=== PATIENT | female | born 1985 | race African-American/Black ===

== ENCOUNTER 2016-10-10 08:13 | Observation (INO) | payer OTHER ==
[2016-10-10 08:18] VITALS: BMI 39.9
[2016-10-10] MEDS ORDERED: ONDANSETRON 4 MG/2 ML VIAL IVPUSH ONE (09:30)
[2016-10-10] MEDS ORDERED: SODIUM CHLORIDE 1,000 ML IV STA ×2 (09:30→11:28)
[2016-10-10] MEDS ORDERED: morphine CARPU-JECT 4 MG/1 ML DISP.SYRIN IVPUSH ONE ×2 (09:30→11:44)
--- NOTE | 2016-10-10 09:30 | PDOC ---
History of Present Illness - General History Source: Patient Exam Limitations: No Limitations - History of Present Illness Initial Comments: 10/10/16 09:34 The patient is a 30 year old female, with a significant past medical history of anemia, who presents to the emergency department with abdominal pain, nausea and vomiting for the past 4 days. She describes the abdominal pain as a cramping sensation, ranging from moderate to severe, diffused throughout, without radiation or modifying factors She notes that last night was the first time she had a vomiting episode, which she describes as nonbilious and nonbloody. She also notes that her nausea is onset when the pain is worsened. She states that she recently arrived from [facility] on September 23 from a vacation. The patient denies chest pain, shortness of breath, headache and dizziness. Denies fever, chills, diarrhea and constipation. Denies dysuria, frequency, urgency and hematuria. LMP: 10/04/2016 Allergies: None Past surgical history: None reported Social history: +Occasional alcohol use. No tobacco or drug use reported <Chadd Elder - Last Filed: 10/10/16 12:45> <Mallika Genao - Last Filed: 10/11/16 09:40> - General Chief Complaint: Pain, Acute Stated Complaint: ABD PAIN, VOMTING Time Seen by Provider: 10/10/16 09:06 Past History <Chadd Elder - Last Filed: 10/10/16 12:45> - Past Medical History Anemia: Yes - Psycho/Social/Smoking Cessation Hx Anxiety: No Suicidal Ideation: No Smoking History: Never smoked Information on smoking cessation initiated: No Hx Alcohol Use: Yes (OCCASIONALLY) Drug/Substance Use Hx: No Substance Use Type: Alcohol <Mallika Genao - Last Filed: 10/11/16 09:40> - Past Medical History Allergies/Adverse Reactions: Allergies Allergy/AdvReac Type Severity Reaction Status Date / Time No Known Allergies Allergy Verified 10/10/16 08:18 Home Medications: Ambulatory Orders Norethindrone AC-Eth Estradiol [Microgestin 21 1-20 Tablet] 1 each PO DAILY Review of Systems - Review of Systems Able to Perform ROS?: Yes Comments:: 10/10/16 09:35 GENERAL/CONSTITUTIONAL: No fever or chills. No weakness. HEAD, EYES, EARS, NOSE AND THROAT: No change in vision. No ear pain or discharge. No sore throat. CARDIOVASCULAR: No chest pain or shortness of breath RESPIRATORY: No cough, wheezing, or hemoptysis. GASTROINTESTINAL: +Abdominal pain, nausea, vomiting. No diarrhea or constipation. GENITOURINARY: No dysuria, frequency, or change in urination. MUSCULOSKELETAL: No joint or muscle swelling or pain. No neck or back pain. SKIN: No rash NEUROLOGIC: No headache, vertigo, loss of consciousness, or change in strength/ sensation. ENDOCRINE: No increased thirst. No abnormal weight change HEMATOLOGIC/LYMPHATIC: No anemia, easy bleeding, or history of blood clots. ALLERGIC/IMMUNOLOGIC: No hives or skin allergy. <Chadd Elder - Last Filed: 10/10/16 12:45> *Physical Exam - Vital Signs Last Vital Signs Temp Pulse Resp BP Pulse Ox 98.1 F 98 H 18 119/80 98 10/10/16 08:16 10/10/16 08:16 10/10/16 08:16 10/10/16 08:16 10/10/16 08:16 - Physical Exam Comments: 10/10/16 09:35 GENERAL: Awake, alert, and fully oriented, appears uncomfortable. HEAD: No signs of trauma, normocephalic, atraumatic EYES: PERRLA, EOMI, sclera anicteric, conjunctiva clear ENT: Auricles normal inspection, hearing grossly normal, nares patent, oropharynx clear without exudates. Dry Mucosa. NECK: Normal ROM, supple, no lymphadenopathy, JVD, or masses LUNGS: No distress, speaks full sentences, clear to auscultation bilaterally HEART: Regular rate and rhythm, normal S1 and S2, no murmurs, rubs or gallops, peripheral pulses normal and equal bilaterally. ABDOMEN: +Diffusely tender, worst in the epigastric region. Soft, normoactive bowel sounds. No guarding, no rebound. No masses EXTREMITIES: Normal inspection, Normal range of motion, no edema. No clubbing or cyanosis. NEUROLOGICAL: Cranial nerves II through XII grossly intact. Normal speech, normal gait, no focal sensorimotor deficits SKIN: Warm, Dry, normal turgor, no rashes or lesions noted. <Chadd Elder - Last Filed: 10/10/16 12:45> - Vital Signs Last Vital Signs Temp Pulse Resp BP Pulse Ox 98.1 F 98 H 18 119/80 98 10/10/16 08:16 10/10/16 08:16 10/10/16 08:16 10/10/16 08:16 10/10/16 08:16 <Mallika Genao - Last Filed: 10/11/16 09:40> ED Treatment Course - LABORATORY CBC & Chemistry Diagram: 10/10/16 10:25 10/10/16 10:25 - RADIOLOGY Radiograph Interpretation: 10/10/16 12:45 CT abdomen and pelvis without contrast Reviewed by: Dr. Tony Boone Impression: Multiple abnormal thick walled and enhancing loops of the mid to distal small bowel containing fluid and air. There are enteric and mesenteric inflammatory changes. There is moderate free fluid suggestive of peritonitis. No free air is seen. Note is made of a large lobulated myomatous uterus. <Chadd Elder - Last Filed: 10/10/16 12:45> - LABORATORY CBC & Chemistry Diagram: 10/11/16 07:45 10/11/16 07:45 <Mallika Genao - Last Filed: 10/11/16 09:40> Medical Decision Making - Medical Decision Making 10/10/16 11:40 Pt reassessed. Pain is returning. She is going to CT presently. Will give additional dose of morphine. Await CT results. 10/10/16 13:[address] results with patient- edematous loops of bowel and free fluid. Also with elevated lactate. She continues to have discomfort and appears ill but nontoxic. She agrees to admission for further workup and management of her pain. <Mallika Genao - Last Filed: 10/11/16 09:40> *DC/Admit/Observation/Transfer - Attestations Scribe Attestion: 10/10/16 09:35 Documentation prepared by Chadd Elder, acting as medical education coordinator for Mallika Genao MD <Chadd Elder - Last Filed: 10/10/16 12:45> - Discharge Dispostion Admit: Yes <Mallika Genao - Last Filed: 10/11/16 09:40> Diagnosis at time of Disposition: Enteritis - Discharge Dispostion Condition at time of disposition: Stable
[2016-10-10] MEDS ORDERED: morphine CARPU-JECT 4 MG/1 ML DISP.SYRIN ONE ×2 (09:45→12:10)
[2016-10-10] MEDS ORDERED: ONDANSETRON 4 MG/2 ML VIAL ONE (09:45)
[2016-10-10 10:10] LABS: URINE APPEARANCE CLEAR; URINE BILIRUBIN NEGATIVE (NEGATIVE); URINE COLOR YELLOW; URINE GLUCOSE (UA) NEGATIVE (NEGATIVE); URINE KETONE TRACE (NEGATIVE); URINE LEUK ESTERASE NEGATIVE (NEGATIVE); URINE NITRITE NEGATIVE (NEGATIVE); URINE PROTEIN NEGATIVE (NEGATIVE); URINE UROBILINOGEN NEGATIVE E.U./dl (0.2-1.0)
[2016-10-10 10:39] LABS: MCHC 31.9 g/dl (32.0-36.0); MEAN CELL VOLUME 61.8 fl (80-96); MEAN PLT VOLUME 8.5 fl (7.5-11.1); PLATELET COUNT 278 K/MM3 (134-434); RDW 22.6 % (11.6-15.6); WHITE BLOOD COUNT 9.5 K/mm3 (4.0-10.0)
[2016-10-10 10:41] LABS: MCH 19.8 pg (25.7-33.7)
[2016-10-10 10:58] LABS: URINE BLOOD 1+ (NEGATIVE)
[2016-10-10 11:01] LABS: URINE BACTERIA RARE /hpf (NONE SEEN); URINE MUCUS MODERATE; URINE RBC 1 /hpf (0-3); URINE WBC 4 /hpf (3-5)
[2016-10-10 11:14] LABS: ALBUMIN 3.7 g/dl (3.4-5.0); ALK PHOS 98 U/L (45-117); ANION GAP 9 (8-16); BILIRUBIN,TOTAL 0.5 mg/dL (0.2-1.0); CALCIUM 8.8 mg/dL (8.5-10.1); CO2 23 mmol/L (21-32); CREATININE 0.6 mg/dL (0.55-1.02); GLUCOSE,RANDOM 103 mg/dL (74-106); SGOT/AST 21 U/L (15-37); SGPT/ALT 15 U/L (12-78); TOT PROT 9.6 g/dl (6.4-8.2)
[2016-10-10] MEDS ORDERED: METRONIDAZOLE 500 MG PREMIXED 100 ML IVPB ONE ×2 (13:04→13:11)
[2016-10-10] MEDS ORDERED: LEVOFLOXACIN 500 MG IVPB 100 ML IVPB ONE ×2 (13:04→13:11)
--- NOTE | 2016-10-10 13:08 | PN ---
Teaching Attending Note Name of Resident: Polina Hein ATTENDING PHYSICIAN STATEMENT I saw and evaluated the patient. I reviewed the resident's note and discussed the case with the resident. I agree with the resident's findings and plan as documented. SUBJECTIVE: The patient is a 30 year old female with a significant past medical history of anemia (Thalesemia) who presents to the ED with four days of diffuse abdominal pain accompanied by nausea and vomiting. Her pain began in the epigastrum and became generalized. It is mild to moderate in intensity and does not radiate. She began vomiting last night and has vomited 6 times total (non-bloody/bilious) . She began to have diarrhea yesterday afternoon and has had 6 episodes of watery stool (no blood or mucous). She was in [facility] for 10 days and returned on September 23. She ate resort food and drank resort bottled water. None of her fellow travelers became ill. She denies [place] contact/hiking. OBJECTIVE: Vitals noted She is well appearing Abdomen is soft and diffusely tender with deep palpation Labs and CT noted including mild lactic acidosis with normal bicarbonate and anion gap ASSESSMENT AND PLAN: -Enteritis Infectious vs Inflammatory ED covered with Levaquin and Flagyl Will volume resuscitate with D5-NS given hypovolemia and ketonemia suspected secondary to starvation ketosis Clear liquids for now Will consult GI EKG given Zofran and flouroquinolone use Stool studies (ordered) -Anemia Chronic She reports an exhaustive previous work-up with a diagnosis of Thalesemia Low MCV and target cells supports this However, high RDW suggests possible concurrent iron deficiency At her request we are deferring further evaluation to the outpatient setting Further details per resident note
[2016-10-10] MEDS ORDERED: DEXTROSE 5% IV SCH (13:15)
[2016-10-10] MEDS ORDERED: NORMAL SALINE IV SCH (13:15)
--- NOTE | 2016-10-10 13:45 | HP ---
CHIEF COMPLAINT: "my stomach hurts" PCP: none HISTORY OF PRESENT ILLNESS: This is a 30 yo F with pmh of thalassemia (unknown type, baseline hgb 10-12), who presents with craphy abd pain x 4 days and n/v, diarrhea since yesterday. She has had 4 episodes of NBNB vomiting and 7 episodes of watery nonbloody nonmelenous diarrhea since yesterday. Her abd pain is 7/10 alleviated by morphine, mostly epirastric and in R Lower quad, nonradiating and aggravated by having a BM. Her rectum also hurts during the BM. She has lost her appetite. this has never happened to her before. She deneis sick contacts. [place] e[place] [facility] but has only eaten resort food, no fruit and drank bottled water. She denies f/c, sob, sushila pain, cought, dysuria, flank pain, h/a , weight change, edema. She has no personal of family history of IBS, autoimmune disease or GI issues. ER course was notable for: (1)labs (2)abd ct (3)zofran, ivf, levaquin, flagyl Recent Travel: as above PAST MEDICAL HISTORY: as above PAST SURGICAL HISTORY: breast reduction Social History: resident physician Smoking: denies Alcohol: occasional 2 drink/week Drugs: denies Family History: sickle trait mother, no history of IBS, Autoimmune or gi disease Allergies No Known Allergies Allergy (Verified 10/10/16 08:18) HOME MEDICATIONS: Home Medications Medication Instructions Recorded Norethindrone AC-Eth Estradiol 1 each PO DAILY 10/10/16 [Microgestin 21 1-20 Tablet] REVIEW OF SYSTEMS CONSTITUTIONAL: Absent: fever, chills,weight change HEENT: Absent: rhinorrhea, nasal congestion, throat pain CARDIOVASCULAR: Absent: chest pain, syncope, palpitations RESPIRATORY: Absent: cough, shortness of breath, dyspnea with exertion GASTROINTESTINAL: Absent: constipation, melena, hematochezia GENITOURINARY: Absent: dysuria, flank pain MUSCULOSKELETAL: Absent: myalgia, arthralgia SKIN: Absent: rash, itching, pallor HEMATOLOGIC/IMMUNOLOGIC: Absent: frequent infections ENDOCRINE: Absent: unexplained weight gain, unexplained weight loss NEUROLOGIC: Absent: headache, focal weakness or paresthesias PSYCHIATRIC: Absent: anxiety, depression Laboratory Tests 10/10/16 10/10/1610/10/17 09:20 10:25 10:25 WBC 9.5 RBC 5.79 H Hgb 11.4 Hct 35.8 MCV 61.8 L MCHC 31.9 L RDW 22.6 H Plt Count 278 MPV 8.5 Neutrophils % 89.0 H Lymphocytes % 9.0 Monocytes % 2.0 L Differential Comment Manual diff done Platelet Estimate Adequate Hypochromic-Microcytic 4+ Anisocytosis 3+ Microcytosis 2+ Macrocytosis 1+ Target Cells 2+ Morphology Comment Slide scanned Sodium Potassium Chloride Carbon Dioxide Anion Gap BUN Creatinine Creat Clearance w eGFR Random Glucose Lactic Acid Calcium Total Bilirubin AST ALT Alkaline Phosphatase Total Protein Albumin Lipase Serum , Qual Negative Urine Color Yellow Urine Appearance Clear Urine pH 5.0 Ur Specific [place] 1.025 Urine Protein Negative Urine Glucose (UA) Negative Urine Ketones Trace H Urine Blood 1+ H Urine Nitrite Negative Urine Bilirubin Negative Urine Urobilinogen Negative Ur Leukocyte Esterase Negative Urine RBC 1 Urine WBC 4 Ur Epithelial Cells Rare Urine Bacteria Rare Urine Mucus Moderate Urine HCG, Qual Negative 10/10/16 10/10/16 10:25 10:25 WBC RBC Hgb Hct MCV MCHC RDW Plt Count MPV Neutrophils % Lymphocytes % Monocytes % Differential Comment Platelet Estimate Hypochromic-Microcytic Anisocytosis Microcytosis Macrocytosis Target Cells Morphology Comment Sodium 135 L Potassium 3.9 Chloride 103 Carbon Dioxide 23 Anion Gap 9 BUN 6 L Creatinine 0.6 Creat Clearance w eGFR > 60 Random Glucose 103 Lactic Acid 2.153 H* Calcium 8.8 Total Bilirubin 0.5 AST 21 ALT 15 Alkaline Phosphatase 98 Total Protein 9.6 H Albumin 3.7 Lipase 121 Serum , Qual Urine Color Urine Appearance Urine pH Ur Specific [place] Urine Protein Urine Glucose (UA) Urine Ketones Urine Blood Urine Nitrite Urine Bilirubin Urine Urobilinogen Ur Leukocyte Esterase Urine RBC Urine WBC Ur Epithelial Cells Urine Bacteria Urine Mucus Urine HCG, Qual PHYSICAL EXAMINATION GENERAL: Awake, alert, and fully oriented, in no acute distress. HEAD: Normal with no signs of trauma. EYES: Pupils equal, round and reactive to light, extraocular movements intact, sclera anicteric, conjunctiva clear. No lid lag. EARS, NOSE, THROAT: Moist mucous membranes. NECK: Nsupple LUNGS: Breath sounds equal, clear to auscultation bilaterally. HEART: Regular rate and rhythm, normal S1 and S2 ABDOMEN: Soft, diffusely tender more in epigastric, ruq, rlq. obese, not distended, normoactive bowel sounds, ruq, rld epigastric voluntary guarding, no rebound, no masses. No hepatomegaly or splenomegaly. Rectal Exam: empty vault with trace brown stool, no lesions, mildly painful MUSCULOSKELETAL: No CVA tenderness. UPPER EXTREMITIES: 2+ pulses, warm, well-perfused. No cyanosis. No clubbing. No peripheral edema. LOWER EXTREMITIES: 2+ pulses, warm, well-perfused. No calf tenderness. No peripheral edema. NEUROLOGICAL: Cranial nerves II-XII grossly intact. Normal speech. Normal gait. PSYCHIATRIC: Cooperative. Good eye contact. Appropriate mood and affect. SKIN: Warm, dry ASSESSMENT/PLAN: This is a 30 yo F with pmh of thalassemia (unknown type, baseline hgb 10-12), who presents with craphy abd pain x 4 days and n/v, diarrhea since yesterday. Acute enteritis -infectious vs inflamatory -CT abd/pelvis: mid-dist SB thickening, perienteric and mesenteric inflammation , moderate amt of free fluid -empiric flagyl, levaquin in ed -continue with empiric unasyn -does not meet sirs criteria, afebrile, no leukocytosis -stool occult blood, c diff, oova, parasites, wbc -crp, esr, p anca -Gi consult -IVF hydration -zofran prn -morphine prn -clears Lactic acidosis -secondatry to eneritis, dehydration -lactate 2.15, repeat p/d -treat with ivf Thalassemia -unknown type -hgb at baseline FEN D5NS @250 x 2L Lytes stable clears SCD ppx Dispo: admit to [facility]. Problem List - Problem (1) Enteritis Code(s): K52.9 - NONINFECTIVE GASTROENTERITIS AND COLITIS, UNSPECIFIED (2) Thalassemia Code(s): D56.9 - THALASSEMIA, UNSPECIFIED (3) Abdominal pain Code(s): R10.9 - UNSPECIFIED ABDOMINAL PAIN (4) Vomiting Code(s): R11.10 - VOMITING, UNSPECIFIED (5) Diarrhea Code(s): R19.7 - DIARRHEA, UNSPECIFIED Visit type - Emergency Visit Emergency Visit: Yes ED Registration Date: 10/10/16 Care time: The patient presented to the Emergency Department on the above date and was hospitalized for further evaluation of their emergent condition. - New Patient This patient is new to me today: Yes Date on this admission: 10/10/16 - Critical Care Critical Care patient: No
[2016-10-10 14:06] LABS: HYPOCHROMIA 4+; PLATELET ESTIMATE ADEQUATE (NORMAL)
[2016-10-10 14:07] LABS: ANISOCYTOSIS 3+; MICROCYTOSIS 2+; TARGET CELLS 2+
[2016-10-10] MEDS ORDERED: ACETAMINOPHEN 325 MG TABLET (FP) PO PRN (15:12)
[2016-10-10] MEDS ORDERED: morphine CARPU-JECT 2 MG/1 ML DISP.SYRIN IVPUSH PRN (15:12)
[2016-10-10] MEDS ORDERED: ACETAMINOPHEN 325 MG TABLET (FP) ONE (15:30)
[2016-10-10] MEDS ORDERED: ONDANSETRON 4 MG/2 ML VIAL IVPUSH PRN (15:35)
--- NOTE | 2016-10-10 19:27 | CON.GI ---
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 SHE WAS IN HER USOH AND ON SUNDAY HAD MILD EPIGASTRIC PAIN THAT RESOLVED. SUNDAY HER PAIN AND NAUSEA GOT WORSE AND SHE FOUND IT DIFFICULT TO EAT. SUNDAY NIGHT SHE DEVELOPED DIARRHEA AND WENT TO WORK ON SUNDAY. TODAY SHE HAD VOMITING AND A NUMBER OF NONBLOODY BOWEL MOVEMENTS. SHE DENIES MELENA, BRBPR, AND FEVER. IN THE ER SHE HAD A CT SCAN THAT SHOWED AND ENTERITIS IN MID AND DISTAL SB. SHE WAS PLACED ON IV ANTIBIOTICS. NO STOOL CULTURES DONE. TODAY SHE FEELS MUCH BETTER. THERE IS MUCH LESS ABDOMINAL PAIN. SHE HAS HAD 4 WATERY BM'S TODAY.SHE HAS BEEN ABLE TO TOLERATE LIQUID DIET. 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. SHE CAME BACK TO [place] ON September. NUMBER OF SICK CONTACTS AT WORK) Hepatobiliary: No: Cirrhosis, Cholelithiasis, Cholecystitis, Choledocholithiasis , Hepatitis A, Hepatitis B, Hepatitis C, Other Renal/: No: Renal Failure, Renal Inusuff, BPH, Cancer, Hematuria, Hemodialysis , Neurogenic Bladder, Renal Calculi, UTI, Other Reproductive: No: Ectopic , Endometriosis, Fibroids, PID, Polycystic Ovary Syndrome, Postmenopausal, Other ...LMP: 09/29/16 ...: No Infectious Disease: No: AIDS, C-Diff, Herpes Zoster, HIV, MRSA, STD's, Tuberculosis, VREF, Other Psych: No: Addictions, Anxiety, Bipolar, Depression, Panic, Psychosis, Schizophrenia, Other Musculoskeletal: No: Bursitis, Chronic low back pain, Hemiparesis, Hemiplegia, Osteoarthritis, Paraplegia, Other Rheumatology: No: Fibromyalgia, Gout, Lupus, Rheumatoid Arthritis, Sarcoidosis, Vasculitis, Other ENT: No: Allergic Rhinitis, Sinusitis, Other Endocrine: No: [place]'s Disease, Ry's Disease, Diabetes Insipidus, Diabetes Mellitus, Hyperparathyroidism, Hyperthyroidism, Hypothyroidism, Osteopenia, SIADH, Other Dermatology: No: Basal Cell, Cellulitis, Eczema, Melanoma, Psoriasis, Squamous Cell, Other - Past Surgical History Past Surgical History: No: None, AAA Repair, AICD, Amputation, Appendectomy, Arthrosocopy, AV Fistula/Graft, Bariatric Surgery, Breast Biopsy, Bypass, CABG, Carotid Endarterectomy, Cataract Removal, Cholecystectomy, Colectomy, Colonoscopy, Colostomy, Craniotomy, , Cystectomy, Hernia Repair, Hysterectomy, Ileal Conduit, Ileosotomy, Joint Replacement, Kidney Transplant, Laminectomy, Liver Transplant, Mastectomy, Nephrectomy, Oopherectomy, Orchiectomy, Permanent Pacemaker, Prostatectomy, Splenectomy, Stent, Thoracotomy , TURP, Tonsillectomy, Tubal Ligation, Upper Endoscopy, Valve Replacement, Vasectomy, Vein Stripping/Ligation - Alcohol/Substance Use Hx Alcohol Use: Yes (Occ. wine) - Smoking History Smoking history: Never smoked Have you smoked in the past 12 months: No Home Medications - Allergies Allergies/Adverse Reactions: Allergies Allergy/AdvReac Type Severity Reaction Status Date / Time No Known Allergies Allergy Verified 10/10/16 08:18 - Home Medications Home Medications: Ambulatory Orders Norethindrone AC-Eth Estradiol [Microgestin 21 1-20 Tablet] 1 each PO DAILY Family Disease History - Family Disease History Family History: Unremarkable Review of Systems - Review of Systems Constitutional: reports: Chills Eyes: reports: No Symptoms HENT: reports: No Symptoms Neck: reports: No Symptoms Cardiovascular: reports: No Symptoms Respiratory: reports: No Symptoms Gastrointestinal: reports: Abdominal Pain, Diarrhea, Nausea, Vomiting Genitourinary: reports: No Symptoms Breasts: reports: No Symptoms Reported Musculoskeletal: reports: No Symptoms Integumentary: reports: No Symptoms Neurological: reports: No Symptoms Endocrine: reports: No Symptoms Hematology/Lymphatic: reports: No Symptoms Psychiatric: reports: No Symptoms Physical Exam-GI Vital Signs: Vital Signs Temperature 98 F 10/10/16 16:16 Pulse Rate 76 10/10/16 15:22 Respiratory Rate 18 10/10/16 16:16 Blood Pressure 126/71 10/10/16 15:22 O2 Sat by Pulse Oximetry (%) 100 10/10/16 16:16 Constitutional: Yes: Well Nourished, Other (OVERWEIGHT) Eyes: Yes: WNL HENT: Yes: WNL Neck: Yes: WNL Cardiovascular: Yes: WNL Respiratory: Yes: WNL Gastrointestinal Inspection: Yes: WNL ...Auscultate: Yes: Normoactive Bowel Sounds ...Palpate: Yes: Other (MILD EPIGASTRIC PAIN NO GAURDING OR REBOUND) Musculoskeletal: Yes: WNL Extremities: Yes: WNL Neurological: Yes: WNL Psychiatric: Yes: WNL Labs: Laboratory Tests 10/10/16 10/10/16 10/10/16 09:20 10:25 10:25 WBC 9.5 RBC 5.79 H Hgb 11.4 Hct 35.8 MCV 61.8 L MCHC 31.9 L RDW 22.6 H Plt Count 278 MPV 8.5 Neutrophils % 89.0 H Lymphocytes % 9.0 Monocytes % 2.0 L Sodium Potassium Chloride Carbon Dioxide Anion Gap BUN Creatinine Creat Clearance w eGFR Lactic Acid Calcium Total Bilirubin AST ALT Alkaline Phosphatase Total Protein Albumin Lipase Serum , Qual Negative Urine Ketones Trace H Urine Blood 1+ H Stool Occult Blood 10/10/16 10/10/16 10/10/16 10:25 10:25 15:00 WBC RBC Hgb Hct MCV MCHC RDW Plt Count MPV Neutrophils % Lymphocytes % Monocytes % Sodium 135 L Potassium 3.9 Chloride 103 Carbon Dioxide 23 Anion Gap 9 BUN 6 L Creatinine 0.6 Creat Clearance w eGFR > 60 Lactic Acid 2.153 H* 1.321 Calcium 8.8 Total Bilirubin 0.5 AST 21 ALT 15 Alkaline Phosphatase 98 Total Protein 9.6 H Albumin 3.7 Lipase 121 Serum , Qual Urine Ketones Urine Blood Stool Occult Blood 10/10/16 15:30 WBC RBC Hgb Hct MCV MCHC RDW Plt Count MPV Neutrophils % Lymphocytes % Monocytes % Sodium Potassium Chloride Carbon Dioxide Anion Gap BUN Creatinine Creat Clearance w eGFR Lactic Acid Calcium Total Bilirubin AST ALT Alkaline Phosphatase Total Protein Albumin Lipase Serum , Qual Urine Ketones Urine Blood Stool Occult Blood Negative Imaging - Results Cat Scan: Image Reviewed Problem List - Problems (1) Gastroenteritis Assessment/Plan: ? ETIOLOGY, STARTED ON EMPIRIC ANTIBIOTICS BUT NO STOOLS SENT, POSSIBLE VIRAL GE. IN AM ADVANCE TO BRAT DIET , IF TOLERATES TO SOFT BLAND DIET DOUBT IBD IF IMPROVED CONSIDER STOPPING THE ABX Code(s): K52.9 - NONINFECTIVE GASTROENTERITIS AND COLITIS, UNSPECIFIED (2) Enteritis Code(s): K52.9 - NONINFECTIVE GASTROENTERITIS AND COLITIS, UNSPECIFIED (3) Abdominal pain Code(s): R10.9 - UNSPECIFIED ABDOMINAL PAIN (4) Diarrhea Code(s): R19.7 - DIARRHEA, UNSPECIFIED (5) Vomiting Code(s): R11.10 - VOMITING, UNSPECIFIED
[2016-10-10] MEDS: DEXTROSE 5%-NORMAL SALINE 1,000 ML IV SCH (20:18)
[2016-10-10] MEDS ORDERED: AMPICILLIN NA/SULBACTAM NA 3 GM in SODIUM CHLORIDE 100 ML IVPB SCH (21:00)
[2016-10-10] MEDS: AMPICILLIN NA/SULBACTAM NA 3 GM in SODIUM CHLORIDE 100 ML IVPB SCH (21:53)
[2016-10-11] MEDS: AMPICILLIN NA/SULBACTAM NA 3 GM in SODIUM CHLORIDE 100 ML IVPB SCH ×2 (03:34→09:27)
[2016-10-11] MEDS: DEXTROSE 5%-NORMAL SALINE 1,000 ML IV SCH (06:58)
[2016-10-11 08:43] LABS: MCH 20.1 pg (25.7-33.7); MCHC 32.6 g/dl (32.0-36.0); MEAN CELL VOLUME 61.7 fl (80-96); MEAN PLT VOLUME 8.5 fl (7.5-11.1); PLATELET COUNT 219 K/MM3 (134-434); RDW 22.5 % (11.6-15.6); WHITE BLOOD COUNT 6.5 K/mm3 (4.0-10.0)
[2016-10-11 08:52] LABS: CALCIUM 7.6 mg/dL (8.5-10.1); COCKROFT - GAULT 267.41; CREATININE 0.6 mg/dL (0.55-1.02); PHOSPHOROUS 2.8 mg/dL (2.5-4.9)
[2016-10-11 09:13] VITALS: BP 116/66
--- NOTE | 2016-10-11 13:10 | EKG ---
Test Reason : Blood Pressure : / mmHG Vent. Rate : 079 BPM Atrial Rate : 079 BPM P-R Int : 172 ms QRS Dur : 090 ms QT Int : 398 ms P-R-T Axes : 027 005 005 degrees QTc Int : 456 ms NORMAL SINUS RHYTHM MINIMAL VOLTAGE CRITERIA FOR LVH, MAY BE NORMAL VARIANT CANNOT RULE OUT ANTERIOR INFARCT , AGE UNDETERMINED ABNORMAL ECG NO PREVIOUS ECGS AVAILABLE Confirmed by PHUC CASTAÑEDA, KASHIF ([id number]) on 10/11/2016 1:10:11 PM Referred By: Confirmed By:KASHIF FRIEND MD
[2016-10-11 13:43] VITALS: PULSE 83; TEMP 98.2
--- NOTE | 2016-10-11 13:57 | DS ---
Physical Exam: SUBJECTIVE: Patient seen and examined Patient resting in chair NAD. No acute events. No BM since admission. Feels well. and pain, n/v resolved. Tolerating Banana/rice/apple diet. +flatus. Denies chest pain, sob, f/c, h/a, diaphoresis, dysuria. OBJECTIVE: Vital Signs Period Temp Pulse Resp BP Sys/Stoddard Pulse Ox Last 24 Hr 98 F-98.6 F 76-83 16-20 109-126/66-71 100-100 PHYSICAL EXAM GENERAL: Awake, alert, and fully oriented, in no acute distress. HEAD: Normal with no signs of trauma. EYES: Pupils equal, round and reactive to light, extraocular movements intact, sclera anicteric, conjunctiva clear. No lid lag. EARS, NOSE, THROAT: Moist mucous membranes. NECK: supple LUNGS: Breath sounds equal, clear to auscultation bilaterally. HEART: Regular rate and rhythm, normal S1 and S2 ABDOMEN: Soft, milldy tender ruq, rlq. obese, not distended, normoactive bowel sounds, no guarding, no rebound, no masses. No hepatomegaly or splenomegaly. MUSCULOSKELETAL: No CVA tenderness. UPPER EXTREMITIES: 2+ pulses, warm, well-perfused. No cyanosis. No clubbing. No peripheral edema. LOWER EXTREMITIES: 2+ pulses, warm, well-perfused. No calf tenderness. No peripheral edema. NEUROLOGICAL: Cranial nerves II-XII grossly intact. Normal speech. Normal gait. PSYCHIATRIC: Cooperative. Good eye contact. Appropriate mood and affect. SKIN: Warm, dry LABS Laboratory Results - last 24 hr 10/10/16 10/11/16 10/11/16 15:30 07:45 07:45 WBC 6.5 D RBC 4.70 Hgb 9.4 L D Hct 29.0 L D MCV 61.7 L MCHC 32.6 RDW 22.5 H Plt Count 219 D MPV 8.5 Sodium 140 Potassium 3.8 Chloride 108 H Carbon Dioxide 24 Anion Gap 8 BUN 3 L D Creatinine 0.6 Random Glucose 97 Calcium 7.6 L Phosphorus 2.8 Magnesium 2.0 C-Reactive Protein Stool Occult Blood Negative 10/11/16 07:45 WBC RBC Hgb Hct MCV MCHC RDW Plt Count MPV Sodium Potassium Chloride Carbon Dioxide Anion Gap BUN Creatinine Random Glucose Calcium Phosphorus Magnesium C-Reactive Protein 5.0 H Stool Occult Blood [facility]: Date of Admission:10/10/16 This is a 30 yo F with pmh of thalassemia (unknown type, baseline hgb 10-12), who presents with craphy abd pain x 4 days and n/v, diarrhea since yesterday. She has had 4 episodes of NBNB vomiting and 7 episodes of watery nonbloody nonmelenous diarrhea since yesterday. Her abd pain is 7/10 alleviated by morphine, mostly epirastric and in R Lower quad, nonradiating and aggravated by having a BM. Her rectum also hurts during the BM. She has lost her appetite. this has never happened to her before. She deneis sick contacts. [place] but has only eaten resort food, no fruit and drank bottled water. She denies f/c, sob, sushila pain, cought, dysuria, flank pain, h/a , weight change, edema. She has no personal of family history of IBS, autoimmune disease or GI issues. CT abd/pelvis: mid-dist SB thickening, perienteric and mesenteric inflammation, moderate amt of free fluid. She was admitted with acute enteritis. She was treated with IV ABX and fluids. GI evaluated patient to have mild viral gastroenteritis. Her symptoms resolved and she was sent home w/o abx. Date of Discharge: 10/11/16 Minutes to complete discharge: 60 (na) Discharge Summary Reason For Visit: ENTERITIS Current Active Problems Abdominal pain (Acute) Diarrhea (Acute) Enteritis (Acute) Gastroenteritis (Acute) Thalassemia (Acute) Vomiting (Acute) Condition: Good - Instructions Diet, Activity, Other Instructions: you were here for abdominal infection. You were evaluated by GI and assessed to have a likely viral gastroenteritis. Your symptoms resolved and you are safe to go homw with no further need for antibiotics. Please eat a bland diet for the next 2 days. F/U with PCP if symptoms resume, return to ER if severe symptoms resume or if symptoms last longer than 5 days. Referrals: Curt Donis MD [Staff Physician] - 2 Weeks Disposition: HOME - Home Medications Comprehensive Discharge Medication List: Ambulatory Orders Norethindrone AC-Eth Estradiol [Microgestin 21 1-20 Tablet] 1 each PO DAILY Problem List - Problems (1) Thalassemia Code(s): D56.9 - THALASSEMIA, UNSPECIFIED (2) Abdominal pain Code(s): R10.9 - UNSPECIFIED ABDOMINAL PAIN (3) Vomiting Code(s): R11.10 - VOMITING, UNSPECIFIED (4) Diarrhea Code(s): R19.7 - DIARRHEA, UNSPECIFIED (5) Viral gastroenteritis Code(s): A08.4 - VIRAL INTESTINAL INFECTION, UNSPECIFIED This patient is new to me today: No Emergency Visit: Yes ED Registration Date: 10/10/16 Care time: The patient presented to the Emergency Department on the above date and was hospitalized for further evaluation of their emergent condition. Critical Care patient: No - Discharge Referral Referred to [facility] Med P.C.: No
--- NOTE | 2016-10-11 14:52 | PN ---
Teaching Attending Note Name of Resident: Polina Hein ATTENDING PHYSICIAN STATEMENT I saw and evaluated the patient. I reviewed the resident's note and discussed the case with the resident. I agree with the resident's findings and plan as documented. SUBJECTIVE: no n/v , no BM today . no abd pain . feels better . OBJECTIVE: NAD , pleasant and cooperative CV:RRR Lungs : CTAB Ext : no edema Abd , soft, NT, ND , NL BS . ASSESSMENT AND PLAN: 30 y/o pleasant lady , with history of Thalassemia who presented with abd pain , N/V/D. sx resolved, has benign abd exam. likely has viral gastroenteritis . no stool sent for cx as she had no diarrhea . will stop Abx . send home
[2016-10-14 00:06] LABS: C-ANCA <1:20 titer (Neg:<1:20); MYELOPEROXIDASE ANTIBODY <9.0 U/mL (0.0-9.0); P-ANCA <1:20 titer (Neg:<1:20); PROTEINASE-3 ANTIBODY <3.5 U/mL (0.0-3.5)
== END 2016-10-11 14:53 | disposition home or self-care (01) ==
LOC: JER 08:13 → JERBED 13:05 → UNDOADMOB 13:05 → INTOOBSV 15:12 → OBSVTOIN 15:12 → JERBED 15:50 → J6S 15:50 → JERBED 10-11 14:37
PROVIDERS: ADMIT Internal Medicine; ATTEND Internal Medicine
PROC: 3E03329 Introduction of Other Anti-infective into Peripheral Vein, Percutaneous Approach (ICD-10-PCS; principal; 2016-10-11)
PROC: 3E0337Z Introduction of Electrolytic and Water Balance Substance into Peripheral Vein, Percutaneous Approach (ICD-10-PCS; 2016-10-11)
PROC: 3E033NZ Introduction of Analgesics, Hypnotics, Sedatives into Peripheral Vein, Percutaneous Approach (ICD-10-PCS; 2016-10-11)
PROC: 3E033GC Introduction of Other Therapeutic Substance into Peripheral Vein, Percutaneous Approach (ICD-10-PCS; 2016-10-11)
DX: K52.9 Noninfective gastroenteritis and colitis, unspecified (principal); D56.9 Thalassemia, unspecified; E86.0 Dehydration
CPT/HCPCS: 36415; 74177-TC; 80048; 80053; 81003; 81015; 82272; 83520; 83605; 83690; 83735; 84100; 84703; 85025; 85027; 85651; 86140; 86256; 93005; 93010; 99285-25; G0378

== ENCOUNTER 2018-07-20 15:30 | Emergency (ER) | payer OTHER ==
[2018-07-20 15:46] VITALS: BP 141/94; PULSE 89; TEMP 97.9; BMI 38.4
[2018-07-20] MEDS ORDERED: KETOROLAC TROMETHAMINE 30 MG/1 ML VIAL IVPUSH ONE (16:15)
[2018-07-20] MEDS ORDERED: SODIUM CHLORIDE 1,000 ML IV STA (16:15)
--- NOTE | 2018-07-20 16:30 | PDOC ---
History of Present Illness - General Chief Complaint: Back Pain Stated Complaint: PAIN, ACUTE Time Seen by Provider: 07/20/18 16:10 History Source: Patient - History of Present Illness Occurred: reports: just prior to arrival Pain Location: reports: back Past History - Past Medical History Allergies/Adverse Reactions: Allergies Allergy/AdvReac Type Severity Reaction Status Date / Time No Known Allergies Allergy Verified 07/20/18 15:42 Home Medications: Ambulatory Orders Cyclobenzaprine HCl [Flexeril 10 mg] 10 mg PO TID PRN #9 tablet 07/20/18 Ibuprofen [Motrin -] 800 mg PO Q6H #30 tablet 07/20/18 Anemia: Yes COPD: No Other medical history: UTERINE FIBROIDS - Immunization History Immunization Up to Date: Yes - Suicide/Smoking/Psychosocial Hx Smoking History: Never smoked Have you smoked in the past 12 months: No Hx Alcohol Use: No Drug/Substance Use Hx: No Substance Use Type: Alcohol Hx Substance Use Treatment: No Review of Systems - Review of Systems Constitutional: No: Chills, Fever ABD/GI: No: Diarrhea, Nausea, Vomiting, Abdominal cramping : Yes: Flank Pain. No: Dysuria, Hematuria *Physical Exam - Vital Signs Last Vital Signs Temp Pulse Resp BP Pulse Ox 97.9 F 89 18 141/94 100 07/20/18 15:42 07/20/18 15:42 07/20/18 15:42 07/20/18 15:42 07/20/18 15:42 - Physical Exam General Appearance: Yes: Appropriately Dressed, Moderate Distress HEENT: positive: Normal Voice Neck: positive: Supple Respiratory/Chest: negative: Respiratory Distress Gastrointestinal/Abdominal: positive: Soft. negative: Tender Musculoskeletal: positive: CVA Tenderness (R) Integumentary: positive: Dry, Warm Neurologic: positive: Fully Oriented, Alert, Normal Mood/Affect Moderate Sedation - Procedure Monitoring Vital Signs: Procedure Monitoring Vital Signs Temperature 97.9 F 07/20/18 15:42 Pulse Rate 89 07/20/18 15:42 Respiratory Rate 18 07/20/18 15:42 Blood Pressure 141/94 07/20/18 15:42 O2 Sat by Pulse Oximetry (%) 100 07/20/18 15:42 ED Treatment Course - LABORATORY CBC & Chemistry Diagram: 07/20/18 16:25 07/20/18 16:25 - RADIOLOGY Radiology Studies Ordered: Category Date Time Status ABDOMEN & PELVIS CT W/O CONTR [CT] Stat CT Scan 07/20/18 16:16 Ordered Medical Decision Making - Medical Decision Making 07/20/18 16:28 32-year-old female, denies any past medical history here with sudden onset R flank pain that started 3 hours ago while sitting down at home watching TV. No nausea, vomiting, dysuria, hematuria, fever or chills. No trauma or other obvious inciting factors. No history of back pain. No history of kidney stones. see exam R/o renal stone -pain control -IVF -labs -CT 07/20/18 19:26 Labs only remarkable for 1+ blood on UA. CT read as negative for stones or other acute pathology. Patient improved with meds. Will discharge with pain control and PMD follow-up as needed *DC/Admit/Observation/Transfer Diagnosis at time of Disposition: Back pain Qualifiers: Back pain location: low back pain Chronicity: acute Back pain laterality: right Sciatica presence: without sciatica Qualified Code(s): M54.5 - Low back pain - Discharge Dispostion Disposition: HOME Condition at time of disposition: Improved - Prescriptions Prescriptions: Cyclobenzaprine HCl [Flexeril 10 mg] 10 mg PO TID PRN #9 tablet PRN Reason: Back Pain Ibuprofen [Motrin -] 800 mg PO Q6H #30 tablet - Referrals - Patient Instructions Printed Discharge Instructions: Low Back Pain Additional Instructions: The cause of your back pain is possibly muscular as your labs and CAT scan were normal. Take Motrin and flexeril as needed for pain and follow-up with your PMD if pain persists - Post Discharge Activity
[2018-07-20 17:03] LABS: BASO % 0.5 % (0-2.0); EOS % 0.3 % (0-4.5); HEMATOCRIT 38.8 % (32.4-45.2); HEMOGLOBIN 13.4 GM/dL (10.7-15.3); LYMPH % 29.1 % (8-40); MCH 27.5 pg (25.7-33.7); MCHC 34.4 g/dl (32.0-36.0); MEAN CELL VOLUME 79.8 fl (80-96); MEAN PLT VOLUME 8.5 fl (7.5-11.1); MONO % 6.8 % (3.8-10.2); NEUT % 63.3 % (42.8-82.8); PLATELET COUNT 213 K/MM3 (134-434); RBC 4.87 M/mm3 (3.60-5.2); RDW 15.7 % (11.6-15.6); WHITE BLOOD COUNT 6.4 K/mm3 (4.0-10.0)
[2018-07-20 17:07] LABS: URINE APPEARANCE CLEAR; URINE BILIRUBIN NEGATIVE (<2.0 mg/dL); URINE COLOR LTYELLOW; URINE GLUCOSE (UA) NEGATIVE (NEGATIVE); URINE KETONE NEGATIVE (NEGATIVE); URINE LEUK ESTERASE NEGATIVE (NEGATIVE); URINE NITRITE NEGATIVE (NEGATIVE); URINE PROTEIN NEGATIVE (NEGATIVE); URINE UROBILINOGEN NEGATIVE mg/dL (0.2-1.0)
[2018-07-20 17:19] LABS: HCG,QUALITATIVE URINE Negative
[2018-07-20 17:22] LABS: EPI CELLS RARE /HPF (FEW)
[2018-07-20 17:27] LABS: ALK PHOS 101 U/L (45-117); ANION GAP 6 MMOL/L (8-16); BILIRUBIN,TOTAL 0.3 mg/dL (0.2-1); BLOOD UREA NITROGEN 9 mg/dL (7-18); CALCIUM 8.2 mg/dL (8.5-10.1); CHLORIDE 102 mmol/L (98-107); CO2 28 mmol/L (21-32); CREATININE 0.8 mg/dL (0.55-1.3); GLUCOSE,RANDOM 103 mg/dL (74-106); POTASSIUM 3.8 mmol/L (3.5-5.1); SGOT/AST 21 U/L (15-37); SGPT/ALT 24 U/L (13-61); SODIUM 136 mmol/L (136-145)
[2018-07-20] MEDS ORDERED: KETOROLAC TROMETHAMINE 30 MG/1 ML VIAL ONE (17:46)
== END 2018-07-20 19:33 | disposition home or self-care (01) ==
LOC: JER 15:30 → JERFT 15:30
PROC: 3E0337Z Introduction of Electrolytic and Water Balance Substance into Peripheral Vein, Percutaneous Approach (ICD-10-PCS; principal; 2018-07-20)
PROC: 3E0333Z Introduction of Anti-inflammatory into Peripheral Vein, Percutaneous Approach (ICD-10-PCS; 2018-07-20)
DX: M54.5 Low back pain (principal)
CPT/HCPCS: 36415; 74176-TC; 80053; 81003; 81015; 84703; 85025; 87086; 99281-25; J7030